=== PATIENT | male | born 1995 | race Caucasian/White ===

== ENCOUNTER → 2021-02-08 | Outpatient (CLI) | payer MEDICAID ==
[~2021-02-08] MED LIST: BUDE160A3; GABA100C9; LANS15CA37; LORA10CA7; MONT10TA23; QUET50TA; TOPI200T37; VALP250C3
== END | disposition home or self-care (01) ==
LOC: XY 07:29
DX: J45.909 Unspecified asthma, uncomplicated (principal)
CPT/HCPCS: 71046; 78582; A9540; A9558